=== PATIENT | female | born 1965 | race African-American/Black ===

== ENCOUNTER → 2017-08-25 19:13 | Outpatient (CLI) | payer MEDICAID | END | disposition home or self-care (01) | LOC: D.SLEEP 08-19 20:00 | DX: G47.33 Obstructive sleep apnea (adult) (pediatric) (principal); K21.9 Gastro-esophageal reflux disease without esophagitis; I10 Essential (primary) hypertension ==

== ENCOUNTER → 2017-10-18 18:30 | Outpatient (CLI) | payer MEDICAID | END | disposition home or self-care (01) | LOC: D.SLEEP 18:30 | DX: G47.33 Obstructive sleep apnea (adult) (pediatric) (principal) ==